=== PATIENT | female | born 1985 | race Two or more races ===

== ENCOUNTER 2024-07-20 02:38 | Emergency (ER) | payer OTHER ==
[~2024-07-20] VITALS: Ht 160 cm; Wt 59.0 kg
== END 2024-07-20 04:59 | disposition left against medical advice (07) ==
LOC: EDBD 02:38 → ER 02:38
DX: S90.822A Blister (nonthermal), left foot, initial encounter (principal); S90.821A Blister (nonthermal), right foot, initial encounter; Z53.21 Procedure and treatment not carried out due to patient leaving prior to being seen by health care provider; X58.XXXA Exposure to other specified factors, initial encounter; Y93.89 Activity, other specified; Y92.89 Other specified places as the place of occurrence of the external cause; Y99.8 Other external cause status